=== PATIENT | female | born 1995 | race Caucasian/White ===

== ENCOUNTER 2021-11-06 14:40 | Emergency (ER) | payer MEDICAID, OTHER ==
[~2021-11-06] VITALS: Ht 170.2 cm; Wt 82.0 kg
[2021-11-06] MEDS ORDERED: LIDOCAINE W/ EPINEPHRINE 1% 20ML VIAL SC ONE (15:45)
[2021-11-06] MEDS ORDERED: BACDST PO (16:07)
[2021-11-06] MEDS ORDERED: cefTRIAXone SOD 500 MG VL IM ONE (16:15)
[2021-11-06 16:17] VITALS: BP 146/80
== END 2021-11-06 16:38 | disposition home or self-care (01) ==
LOC: ER 14:43
DX: S80.02XA Contusion of left knee, initial encounter (principal); F17.210 Nicotine dependence, cigarettes, uncomplicated; Z79.899 Other long term (current) drug therapy; W18.40XA Slipping, tripping and stumbling without falling, unspecified, initial encounter; Y93.89 Activity, other specified; Y92.89 Other specified places as the place of occurrence of the external cause; Y99.8 Other external cause status
CPT/HCPCS: 10060; 26010